=== PATIENT | male | born 1950 | race African-American/Black ===

== ENCOUNTER 2019-06-17 11:29 | Emergency (ER) | payer OTHER ==
--- OUTSIDE RECORDS SUMMARY | 2019-06-17 11:32 | XMS REPORT ---
:1950 Author Organization eClinicalWorks Care Team Providers Name Role Phone Jonas, Na Provider Role Unavailable Allergies No Known Allergies Problems Problem Type Condition Code Onset Dates Condition Status Problem Diabetes E11.9 Active Problem Hyperlipidemia E78.5 Active Problem Hypertension I10 Active Problem Low serum testosterone level in male R79.89 Active Problem High thyroid stimulating hormone R79.89 Active (TSH) level Problem Decreased libido R68.82 Active Problem Depression with anxiety F41.8 Active Problem Chronic back pain M54.9 Active Problem Hypothyroidism (acquired) E03.9 Active Problem Acquired hypothyroidism E03.9 Active Problem Metabolic syndrome X E88.81 Active Problem Decreased testosterone level E29.1 Active Problem Morbid obesity E66.01 Active Problem Controlled type 2 diabetes mellitus E11.9 Active without complication, without long-term current use of insulin Problem GERD (gastroesophageal reflux K21.9 Active disease) Problem Erectile dysfunction, unspecified N52.9 Active erectile dysfunction type Problem Coronary atherosclerosis of [place] 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
--- OUTSIDE RECORDS SUMMARY | 2019-06-17 11:32 | XMS REPORT ---
[...] erectile dysfunction type Problem Coronary atherosclerosis of [place] 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
--- OUTSIDE RECORDS SUMMARY | 2019-06-17 11:33 | XMS REPORT ---
[...] erectile dysfunction type Problem Coronary atherosclerosis of [place] 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
--- OUTSIDE RECORDS SUMMARY | 2019-06-17 11:33 | XMS REPORT ---
:1950 Author Organization eClinicalWorks Care Team Providers Name Role Phone Jonas, Tanya Provider Role Unavailable Allergies, Adverse Reactions, Alerts Substance Reaction Event Type N.K.D.A. Info Not Available Non Drug Allergy Problems Problem Type Condition Code Onset Dates Condition Status Assessment Hypertension I10 Active Problem GERD (gastroesophageal reflux K21.9 Active disease) Assessment Hyperlipidemia E78.5 Active Problem Coronary atherosclerosis of [place] I25.10 Active coronary artery Assessment Controlled type 2 diabetes mellitus E11.9 Active without complication, without long-term current use of insulin Problem Diabetes E11.9 Active Problem Hyperlipidemia E78.5 Active Problem Hypertension I10 Active Problem Low serum testosterone level in male R79.89 Active Problem High thyroid stimulating hormone R79.89 Active (TSH) level Assessment Low serum testosterone level in male R79.89 Active Assessment Erectile dysfunction, unspecified N52.9 Active erectile dysfunction type Problem Decreased libido R68.82 Active Assessment Decreased libido R68.82 Active Problem Depression with anxiety F41.8 Active Problem Chronic back pain M54.9 Active Problem Hypothyroidism (acquired) E03.9 Active Problem Acquired hypothyroidism E03.9 Active Problem Metabolic syndrome X E88.81 Active Assessment High thyroid stimulating hormone R79.89 Active (TSH) level Assessment Acquired hypothyroidism E03.9 Active Problem Decreased testosterone level E29.1 Active Problem Morbid obesity E66.01 Active Problem Controlled type 2 diabetes mellitus E11.9 Active without complication, without long-term current use of insulin Problem Erectile dysfunction, unspecified N52.9 Active erectile dysfunction type Medications Medication Code Code Instructions Start End Status Dosage System Date Date Toprol XL ND 83289887222 100 MG Orally Active 1 tablet Once a day Clonidine HCl ND 21113170194 0.1 MG Orally Active 1 tablet twice a day at bedtime Enalapril ND 12478023643 20 MG Orally Active 1 tablet Maleate Once a day Clonidine HCl ND 90539954380 0.2 MG Orally April 21, Active 1 tablet twice a day 2017 [place] [facility] 15454340085 5-325 MG Orally Active 1 tablet every 6 hrs as needed Lipitor [facility] 11038774144 40 MG Orally Active 1 tablet Once a day Metformin HCl [facility] 79900297522 500 orally Active 1 tabet twice a day Testosterone [facility] 80590739612 30 MG/ACT Jul 28, Active 1 pump to Transdermal 2017 each Once a day axilla skin in the morning Amlodipine [facility] 52233691523 10 MG Orally Active 1 tablet Besylate Once a day Levothyroxine [facility] 59203992208 137 MCG Orally Jul 28, Active 1 tablet Sodium Once a day 2017 on an empty stomach in the morning Xanax [facility] 82475556233 1 MG Orally Active 1 tablet once a day Levothyroxine [facility] 64946868270 125 MCG Orally Inactive 1 tablet Sodium Once a day on an empty stomach in the morning Results No Known Results Summary Purpose eClinicalWorks Submission
--- OUTSIDE RECORDS SUMMARY | 2019-06-17 11:33 | XMS REPORT ---
[...] erectile dysfunction type Problem Coronary atherosclerosis of [place] 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
--- OUTSIDE RECORDS SUMMARY | 2019-06-17 11:33 | XMS REPORT ---
[...] erectile dysfunction type Problem Coronary atherosclerosis of [place] 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
[2019-06-17] MEDS ORDERED: ONDANSETRON 4 MG (ODT) TAB ONE (12:00)
[2019-06-17] MEDS ORDERED: FENTANYL CITR 100 MCG/2 ML ONE (12:00)
[2019-06-17] MEDS ORDERED: LIDOCAINE 5% PATCH TD ONE (12:15)
[2019-06-17 12:31] LABS: Urine Blood TRACE (NEG); Urine Glucose NEGATIVE (NEG); Urine Protein NEGATIVE (NEG)
--- NOTE | 2019-06-17 13:03 | ER ---
Nurse's Notes [facility] Name: Gerardo Eason Age: 69 yrs Sex: Male : 1950 Arrival Date: 06/17/2019 Time: 11:30 Bed 18 Private MD: Diagnosis: Other chronic pain;Low back pain Presentation: 06/17 11:28 Presenting complaint: Patient states: Reports low back pain which is chronic, frequent aj urination, and accidentally swallowed small amount of rubbing alcohol 2 nights ago. Transition of care: patient was not received from another setting of care. Onset of symptoms was June 17, 2019. Risk Assessment: Do you want to hurt yourself or someone else? Patient reports no desire to harm self or others. Initial Sepsis Screen: Does the patient meet any 2 criteria? No. Patient's initial sepsis screen is negative. Does the patient have a suspected source of infection? No. Patient's initial sepsis screen is negative. Care prior to arrival: None. 11:28 Method Of Arrival: Ambulatory 11:28 Acuity: CHANDRIKA 3 aj Triage Assessment: 11:29 General: Appears in no apparent distress. comfortable, Behavior is calm, cooperative, aj appropriate for age. Pain: Complains of pain in low back area. Neuro: Level of Consciousness is awake, alert, obeys commands, Oriented to person, place, time, situation, Appropriate for age. Respiratory: Airway is patent Respiratory effort is even, unlabored, Respiratory pattern is regular, symmetrical. GI: Abdomen is non-distended, obese. Derm: Skin is intact, is healthy with good turgor, Skin is pink, warm \T\ dry. normal. Historical: - Allergies: 11:29 No Known Allergies; aj - PMHx: 11:30 Chronic pain; aj - Immunization history:: Adult Immunizations up to date. - Social history:: Smoking status: Patient/guardian denies using tobacco. - Ebola Screening: : Patient negative for fever greater than or equal to 101.5 degrees Fahrenheit, and additional compatible Ebola Virus Disease symptoms Patient denies exposure to infectious person Patient denies travel to an Ebola-affected area in the 21 days before illness onset No symptoms or risks identified at this time. Screenin:40 Abuse screen: Denies threats or abuse. Denies injuries from another. Nutritional hb screening: No deficits noted. Tuberculosis screening: No symptoms or risk factors identified. Fall Risk None identified. Assessment: 11:45 General: Appears in no apparent distress. Behavior is calm, cooperative. Pain: Pain hb currently is 8 out of 10 on a pain scale. Neuro: Level of Consciousness is awake, alert, obeys commands, Oriented to person, place, time, situation. Cardiovascular: Capillary refill < 3 seconds Patient's skin is warm and dry. Respiratory: Airway is patent Respiratory effort is even, unlabored, Respiratory pattern is regular, symmetrical. GI: No signs and/or symptoms were reported involving the gastrointestinal system. : No signs and/or symptoms were reported regarding the genitourinary system. EENT: No signs and/or symptoms were reported regarding the EENT system. Derm: Skin is intact, is healthy with good turgor. Musculoskeletal: Reports low back pain. 12:45 Reassessment: Patient appears in no apparent distress at this time. Patient and/or hb family updated on plan of care and expected duration. Pain level reassessed. Patient is alert, oriented x 3, equal unlabored respirations, skin warm/dry/pink. Vital Signs: 11:30 BP 157 / 67; Pulse 87; Resp 19; Temp 97.9; Pulse Ox 99% on R/A; Weight 121.56 kg; aj Height 5 ft. 8 in. (172.72 cm); 13:00 BP 146 / 66; Pulse 82; Resp 16; Pulse Ox 100% on R/A; hb 11:30 Body Mass Index 40.75 (121.56 kg, 172.72 cm) aj ED Course: 11:29 Triage completed. aj 11:30 Patient arrived in ED. as 11:30 Arm band placed on left wrist. Patient placed in an exam room. aj 11:39 Jorge Desir NP is PHCP. pm1 11:39 Nate Murillo MD is Attending Physician. pm1 11:40 Patient has correct armband on for positive identification. Call light in reach. hb 11:52 Olinda Garrido, LILLY is Primary Nurse. hb 13:03 Mehran Best DO is Referral Physician. pm1 13:21 No provider procedures requiring assistance completed. Patient did not have IV access hb during this emergency room visit. Administered Medications: 12:04 Drug: fentaNYL (PF) 50 mcg Route: IM; Site: left deltoid; hb 12:40 Follow up: Response: No adverse reaction; Pain is unchanged, physician notified; RASS: hb Alert and Calm (0) 12:04 Drug: Zofran 4 mg Route: PO; hb 12:40 Follow up: Response: No adverse reaction hb 12:14 Drug: lidocaine 5% patch 1 patches Route: Topical; Site: affected area; hb 12:45 Follow up: Response: No adverse reaction hb 13:10 Drug: HYDROcodone-acetaminophen 10 mg-325 mg 1 tabs Route: PO; hb 13:14 Follow up: Response: Medication administered at discharge. hb Outcome: 13:01 Discharge ordered by MD. pm1 13:21 Discharged to home ambulatory. hb 13:21 Condition: stable 13:21 Discharge instructions given to patient, Instructed on discharge instructions, follow up and referral plans. medication usage, Demonstrated understanding of instructions, follow-up care, medications. 13:21 Patient left the ED. hb Signatures: Gill Oglesby RN RN aj Martinez, Amelia as Marinas, Patrick, NP PHOTOGRAPH FINISHER pm1 Olinda Garrido RN RN hb
--- NOTE | 2019-06-17 13:04 | EDPHYS ---
Physician Documentation [facility] Name: Gerardo Eason Age: 69 yrs Sex: Male : 1950 Arrival Date: 06/17/2019 Time: 11:30 Bed 18 Private MD: ED Physician Nate Murillo HPI: 06/17 11:55 This 69 yrs old Black Male presents to ER via Ambulatory with complaints of Low Back pm1 Pain. 11:55 The patient presents with pain that is chronic, with no known mechanism of injury. The pm1 symptoms are located in the low back. The pain does not radiate. The problem was sustained when his [place] 10 mg was reduced to 7.5 mg and patient has run out of [place] for the past 2 days because he has been taking 1.5 pills of his 7.5 mg. Patient was denied a refill of his [place] by Dr. Melendez for running out early and was told that he will not get a refill of his pain medication until it is time for it and it will not be increased to 10 mg. Patient does not understand why the medication dosage was reduced when the 10 mg dosage was working fine for his pain management. 11:55 Patient drank a sip of rubbing alcohol two days ago. No nausea or vomiting. No pm1 abdominal pain. Historical: - Allergies: 11:29 No Known Allergies; aj - PMHx: 11:30 Chronic pain; aj - Immunization history:: Adult Immunizations up to date. - Social history:: Smoking status: Patient/guardian denies using tobacco. - Ebola Screening: : Patient negative for fever greater than or equal to 101.5 degrees Fahrenheit, and additional compatible Ebola Virus Disease symptoms Patient denies exposure to infectious person Patient denies travel to an Ebola-affected area in the 21 days before illness onset No symptoms or risks identified at this time. ROS: 11:55 Constitutional: Negative for fever, chills, and weight loss, Neck: Negative for injury, pm1 pain, and swelling, Cardiovascular: Negative for chest pain, palpitations, and edema, Respiratory: Negative for shortness of breath, cough, wheezing, and pleuritic chest pain, Abdomen/GI: Negative for abdominal pain, nausea, vomiting, diarrhea, and constipation. 11:55 MS/Extremity: Negative for injury and deformity, Skin: Negative for injury, rash, and discoloration, Neuro: Negative for headache, weakness, numbness, tingling, and seizure. 11:55 Back: Positive for pain with movement, of the right low back. 11:55 : Positive for urinary frequency, Negative for burning with urination, difficulty urinating. Exam: 11:55 Constitutional: This is a well developed, well nourished patient who is awake, alert, pm1 and in no acute distress. Head/Face: Normocephalic, atraumatic. Eyes: Pupils equal round and reactive to light, extra-ocular motions intact. Lids and lashes normal. Conjunctiva and sclera are non-icteric and not injected. Cornea within normal limits. Periorbital areas with no swelling, redness, or edema. ENT: Nares patent. No nasal discharge, no septal abnormalities noted. Tympanic membranes are normal and external auditory canals are clear. Oropharynx with no redness, swelling, or masses, exudates, or evidence of obstruction, uvula midline. Mucous membranes moist. Neck: Trachea midline, no thyromegaly or masses palpated, and no cervical lymphadenopathy. Supple, full range of motion without nuchal rigidity, or vertebral point tenderness. No Meningismus. Chest/axilla: Normal chest wall appearance and motion. Nontender with no deformity. No lesions are appreciated. Cardiovascular: Regular rate and rhythm with a normal S1 and S2. No gallops, murmurs, or rubs. Normal PMI, no JVD. No pulse deficits. Respiratory: Lungs have equal breath sounds bilaterally, clear to auscultation and percussion. No rales, rhonchi or wheezes noted. No increased work of breathing, no retractions or nasal flaring. Abdomen/GI: Soft, non-tender, with normal bowel sounds. No distension or tympany. No guarding or rebound. No evidence of tenderness throughout. 11:55 Skin: Warm, dry with normal turgor. Normal color with no rashes, no lesions, and no evidence of cellulitis. MS/ Extremity: Pulses equal, no cyanosis. Neurovascular intact. Full, normal range of motion. 11:55 Back: normal spinal alignment noted, vertebral tenderness, is not appreciated, muscle spasm, is appreciated in the right low back. 11:55 Neuro: Orientation: is normal, Motor: is normal, moves all fours, strength is normal, strength is 5/5 in all extremities, Sensation: is normal, no obvious gross deficits, Gait: is steady, slow gait with cane, Patient able to dorsiflex and plantar flex bilateral great toes 5/5 strength. Vital Signs: 11:30 BP 157 / 67; Pulse 87; Resp 19; Temp 97.9; Pulse Ox 99% on R/A; Weight 121.56 kg; aj Height 5 ft. 8 in. (172.72 cm); 13:00 BP 146 / 66; Pulse 82; Resp 16; Pulse Ox 100% on R/A; hb 11:30 Body Mass Index 40.75 (121.56 kg, 172.72 cm) aj MDM: 11:40 Patient medically screened. pm1 12:34 Data reviewed: vital signs. Data interpreted: Pulse oximetry: on room air is 99 %. pm1 Interpretation: normal. 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 06/17 12:11 Order name: Urine Dipstick--Ancillary (enter results); Complete Time: 12:34 bd 06/17 11:55 Order name: Urine Dipstick-Ancillary (obtain specimen); Complete Time: 12:11 pm1 Administered Medications: 12:04 Drug: fentaNYL (PF) 50 mcg Route: IM; Site: left deltoid; hb 12:40 Follow up: Response: No adverse reaction; Pain is unchanged, physician notified; RASS: hb Alert and Calm (0) 12:04 Drug: Zofran 4 mg Route: PO; hb 12:40 Follow up: Response: No adverse reaction hb 12:14 Drug: lidocaine 5% patch 1 patches Route: Topical; Site: affected area; hb 12:45 Follow up: Response: No adverse reaction hb 13:10 Drug: HYDROcodone-acetaminophen 10 mg-325 mg 1 tabs Route: PO; hb 13:14 Follow up: Response: Medication administered at discharge. hb Disposition: 06/18 09:15 Co-signature as Attending Physician, Nate Murillo MD I agree with the assessment and fay plan of care. Disposition: 06/17/19 13:01 Discharged to Home. Impression: Low back pain, Other chronic pain. - Condition is Stable. - Discharge Instructions: Back Pain, Adult, Chronic Pain. - Medication Reconciliation Form, Thank You Letter, Antibiotic Education, Prescription Opioid Use form. - Follow up: Emergency Department; When: As needed; Reason: Worsening of condition. Follow up: Private Physician; When: 2 - 3 days; Reason: Recheck today's complaints, Continuance of care, Re-evaluation by your physician. Follow up: Mehran Best DO; When: 2 - 3 days; Reason: Recheck today's complaints, Continuance of care, Re-evaluation by your physician. - Problem is new. - Symptoms have improved. Signatures: Dispatcher [employer] EDGill Brown, RN Nate John MD MD cha Marinas, Patrick, MAITRE D' MAITRE D' pm1 Olinda Garrido RN RN hb Corrections: (The following items were deleted from the chart) 06/17 13:03 13:01 06/17/2019 13:01 Discharged to Home. Impression: Low back painOther chronic pain. pm1 Condition is Stable. Forms are Medication Reconciliation Form, Thank You Letter, Antibiotic Education, Prescription Opioid Use. Follow up: Emergency Department; When: As needed; Reason: Worsening of condition. Follow up: Private Physician; When: 2 - 3 days; Reason: Recheck today's complaints, Continuance of care, Re-evaluation by your physician. Problem is new. Symptoms have improved. pm1 13:21 13:03 06/17/2019 13:01 Discharged to Home. Impression: Low back painOther chronic pain. hb Condition is Stable. Discharge Instructions: Back Pain, Adult, Chronic Pain. Forms are Medication Reconciliation Form, Thank You Letter, Antibiotic Education, Prescription Opioid Use. Follow up: Emergency Department; When: As needed; Reason: Worsening of condition. Follow up: Private Physician; When: 2 - 3 days; Reason: Recheck today's complaints, Continuance of care, Re-evaluation by your physician. Follow up: Mehran Best; When: 2 - 3 days; Reason: Recheck today's complaints, Continuance of care, Re-evaluation by your physician. Problem is new. Symptoms have improved. pm1
[2019-06-17] MEDS ORDERED: HYDROCODONE/APAP 10/325 TAB ONE (13:05)
[2019-06-18] MEDS ORDERED: PHENAZOPYRIDINE 100MG TAB PO ONE (15:37)
[2019-06-18] MEDS ORDERED: CEFTRIAXONE 1000 MG/VIAL ONE (15:38)
[2019-06-18] MEDS ORDERED: LIDOCAINE 1% MPF 2 ML AMPULE ONE (15:38)
== END 2019-06-17 13:21 | disposition home or self-care (01) ==
LOC: ER 11:29
DX: M54.5 Low back pain (principal); G89.29 Other chronic pain
CPT/HCPCS: 81003; 96372; 99283; J3010

== ENCOUNTER 2019-06-21 12:38 | Emergency (ER) | payer OTHER ==
--- OUTSIDE RECORDS SUMMARY | 2019-06-21 12:40 | XMS REPORT ---
[...] type Problem Coronary atherosclerosis of [place] 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
--- OUTSIDE RECORDS SUMMARY | 2019-06-21 12:40 | XMS REPORT ---
[...] erectile dysfunction type Problem Coronary atherosclerosis of [place] 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
--- OUTSIDE RECORDS SUMMARY | 2019-06-21 12:41 | XMS REPORT ---
[...] erectile dysfunction type Problem Coronary atherosclerosis of [place] 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
--- OUTSIDE RECORDS SUMMARY | 2019-06-21 12:41 | XMS REPORT ---
[...] Hyperlipidemia E78.5 Active Problem Coronary atherosclerosis of [place] I25.10 Active coronary artery Assessment Controlled type [...] Dosage System Date Date Toprol XL ND 43460844484 100 MG Orally Active 1 tablet Once a day Clonidine HCl ND 10676280796 0.1 MG Orally Active 1 tablet twice a day at bedtime Enalapril ND 41384753555 20 MG Orally Active 1 tablet Maleate Once a day Clonidine HCl ND 34281665822 0.2 MG Orally April 21, Active 1 tablet twice a day 2017 [place] [facility] 77769361755 5-325 MG Orally Active 1 tablet every 6 hrs as needed Lipitor [facility] 94879294799 40 MG Orally Active 1 tablet Once a day Metformin HCl [facility] 46080041724 500 orally Active 1 tabet twice a day Testosterone [facility] 53938181140 30 MG/ACT Jul 28, Active 1 pump to Transdermal 2017 each Once a day axilla skin in the morning Amlodipine [facility] 54925251868 10 MG Orally Active 1 tablet Besylate Once a day Levothyroxine [facility] 17445768226 137 MCG Orally Jul 28, Active 1 tablet Sodium Once a day 2017 on an empty stomach in the morning Xanax [facility] 68021317847 1 MG Orally Active 1 tablet once a day Levothyroxine [facility] 08614877093 125 MCG Orally Inactive 1 tablet Sodium Once a day on an empty stomach in the morning Results No Known Results Summary Purpose eClinicalWorks Submission
--- OUTSIDE RECORDS SUMMARY | 2019-06-21 12:41 | XMS REPORT ---
[...] erectile dysfunction type Problem Coronary atherosclerosis of [place] 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
--- OUTSIDE RECORDS SUMMARY | 2019-06-21 12:41 | XMS REPORT ---
[...] type Problem Coronary atherosclerosis of [place] 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
--- NOTE | 2019-06-21 13:50 | ER ---
Nurse's Notes [facility] Name: Gerardo Eason Age: 69 yrs Sex: Male : 1950 Arrival Date: 06/21/2019 Time: 12:39 Bed 18 Private MD: Diagnosis: Dental caries;Dental caries, unspecified Presentation: 06/21 13:10 Presenting complaint: Patient states: front tooth pain, needs antibiotics. Transition iw of care: patient was not received from another setting of care. Onset of symptoms was May 2019. Risk Assessment: Do you want to hurt yourself or someone else? Patient reports no desire to harm self or others. Initial Sepsis Screen: Does the patient meet any 2 criteria? No. Patient's initial sepsis screen is negative. Does the patient have a suspected source of infection? No. Patient's initial sepsis screen is negative. Care prior to arrival: None. 13:10 Method Of Arrival: Ambulatory iw 13:10 Acuity: CHANDRIKA 5 iw Historical: - Allergies: 13:59 No Known Allergies; iw - PMHx: 13:59 Chronic pain; iw - Family history:: not pertinent. - Ebola Screening: : Patient negative for fever greater than or equal to 101.5 degrees Fahrenheit, and additional compatible Ebola Virus Disease symptoms Patient denies exposure to infectious person Patient denies travel to an Ebola-affected area in the 21 days before illness onset No symptoms or risks identified at this time. Screenin:30 Abuse screen: Denies threats or abuse. Nutritional screening: No deficits noted. em Tuberculosis screening: No symptoms or risk factors identified. Fall Risk None identified. Assessment: 13:30 General: Appears in no apparent distress. comfortable, Behavior is calm, cooperative, em Denies. Pain: Complains of pain in upper left lateral incisor (#10) and upper right cuspid (#6). Neuro: Level of Consciousness is awake, alert, obeys commands, Oriented to person, place, time, situation. Cardiovascular: Capillary refill < 3 seconds Patient's skin is warm and dry. Respiratory: Airway is patent Respiratory effort is even, unlabored, Respiratory pattern is regular, symmetrical. EENT: Nares are clear Oral mucosa is moist. Throat is clear is pink. Derm: Skin is intact, is healthy with good turgor, Skin is pink, warm \T\ dry. Musculoskeletal: Capillary refill < 3 seconds, Range of motion: intact in all extremities. Vital Signs: 14:05 BP 131 / 66; Pulse 60; Resp 18; Pulse Ox 100% on R/A; Pain 8/10; em ED Course: 12:39 Patient arrived in ED. as 12:59 Nate Murillo MD is Attending Physician. fay 13:06 Liang Melara LVN is Primary Nurse. em 13:12 Triage completed. iw 13:50 Patient has correct armband on for positive identification. Bed in low position. Call em light in reach. 13:59 Arm band placed on. iw 14:07 No provider procedures requiring assistance completed. Patient did not have IV access em during this emergency room visit. Administered Medications: 14:04 Drug: Augmentin 875 mg Route: PO; em 14:07 Follow up: Response: Medication administered at discharge. em 14:04 Drug: Motrin 400 mg Route: PO; em 14:07 Follow up: Response: Medication administered at discharge. em Outcome: 13:49 Discharge ordered by . [facility] 14:07 Discharged to home ambulatory. em 14:07 Condition: good 14:07 Discharge instructions given to patient, Instructed on discharge instructions, follow up and referral plans. medication usage, Demonstrated understanding of instructions, follow-up care, medications, Prescriptions given X 2. 14:08 Patient left the ED. em Signatures: Nate Murillo MD MD cha Munoz, Edgar, MJ BARKER em Naa Painter Irene, RN RN iw
--- NOTE | 2019-06-21 13:50 | EDPHYS ---
Physician Documentation [facility] Name: Gerardo Eason Age: 69 yrs Sex: Male : 1950 Arrival Date: 06/21/2019 Time: 12:39 Bed 18 Private MD: ED Physician Nate Murillo HPI: 06/21 13:41 This 69 yrs old Black Male presents to ER via Ambulatory with complaints of Toothache. fay 13:41 The patient presents with broken tooth/teeth, lost tooth/teeth, pain, swelling. The fay problem is located in the frenulum. Onset: The symptoms/episode began/occurred 2 day(s) ago. Duration: The symptoms are continuous, and are steadily getting worse. Modifying factors: The symptoms are alleviated by nothing, the symptoms are aggravated by nothing. Associated signs and symptoms: The patient has no apparent associated signs or symptoms. Severity of symptoms: At their worst the symptoms were mild, moderate, in the emergency department the symptoms are unchanged. The patient has not experienced similar symptoms in the past. Historical: - Allergies: 13:59 No Known Allergies; iw - PMHx: 13:59 Chronic pain; iw - Family history:: not pertinent. - Ebola Screening: : Patient negative for fever greater than or equal to 101.5 degrees Fahrenheit, and additional compatible Ebola Virus Disease symptoms Patient denies exposure to infectious person Patient denies travel to an Ebola-affected area in the 21 days before illness onset No symptoms or risks identified at this time. ROS: 13:41 Constitutional: Negative for fever, chills, and weight loss, Eyes: Negative for injury, fay pain, redness, and discharge, Neck: Negative for injury, pain, and swelling, Cardiovascular: Negative for chest pain, palpitations, and edema, Respiratory: Negative for shortness of breath, cough, wheezing, and pleuritic chest pain, Abdomen/GI: Negative for abdominal pain, nausea, vomiting, diarrhea, and constipation, Back: Negative for injury and pain, : Negative for injury, bleeding, discharge, and swelling, MS/Extremity: Negative for injury and deformity, Skin: Negative for injury, rash, and discoloration, Neuro: Negative for headache, weakness, numbness, tingling, and seizure, Psych: Negative for depression, anxiety, suicide ideation, homicidal ideation, and hallucinations, Allergy/Immunology: Negative for hives, rash, and allergies, Endocrine: Negative for neck swelling, polydipsia, polyuria, polyphagia, and marked weight changes, Hematologic/Lymphatic: Negative for swollen nodes, abnormal bleeding, and unusual bruising. 13:41 ENT: Positive for Gum pain Teeth pain Exam: 13:41 Constitutional: This is a well developed, well nourished patient who is awake, alert, fay and in no acute distress. Head/Face: Normocephalic, atraumatic. Eyes: Pupils equal round and reactive to light, extra-ocular motions intact. Lids and lashes normal. Conjunctiva and sclera are non-icteric and not injected. Cornea within normal limits. Periorbital areas with no swelling, redness, or edema. Neck: Trachea midline, no thyromegaly or masses palpated, and no cervical lymphadenopathy. Supple, full range of motion without nuchal rigidity, or vertebral point tenderness. No Meningismus. Chest/axilla: Normal chest wall appearance and motion. Nontender with no deformity. No lesions are appreciated. Cardiovascular: Regular rate and rhythm with a normal S1 and S2. No gallops, murmurs, or rubs. Normal PMI, no JVD. No pulse deficits. Respiratory: Lungs have equal breath sounds bilaterally, clear to auscultation and percussion. No rales, rhonchi or wheezes noted. No increased work of breathing, no retractions or nasal flaring. Abdomen/GI: Soft, non-tender, with normal bowel sounds. No distension or tympany. No guarding or rebound. No evidence of tenderness throughout. Back: No spinal tenderness. No costovertebral tenderness. Full range of motion. Male : Normal genitalia with no discharge or lesions. Skin: Warm, dry with normal turgor. Normal color with no rashes, no lesions, and no evidence of cellulitis. MS/ Extremity: Pulses equal, no cyanosis. Neurovascular intact. Full, normal range of motion. Neuro: Awake and alert, GCS 15, oriented to person, place, time, and situation. Cranial nerves II-XII grossly intact. Motor strength 5/5 in all extremities. Sensory grossly intact. Cerebellar exam normal. Normal gait. Psych: Awake, alert, with orientation to person, place and time. Behavior, mood, and affect are within normal limits. 13:41 ENT: Mouth: Lips: normal, moist, Oral mucosa: normal, Gums: noted to have cellulitis, Tongue: is normal, abscess, is not appreciated, drooling, is not appreciated, Dental exam: dental caries, that is mild, that is moderate, diffusely, gum swelling, that is mild, malocclusion, is not appreciated, missing teeth, specifically the upper right cuspid (#6) and upper left lateral incisor (#10). Vital Signs: 14:05 BP 131 / 66; Pulse 60; Resp 18; Pulse Ox 100% on R/A; Pain 8/10; em MDM: 12:59 Patient medically screened. [facility] 13:48 Data reviewed: vital signs, nurses notes. [facility] Administered Medications: 14:04 Drug: Augmentin 875 mg Route: PO; em 14:07 Follow up: Response: Medication administered at discharge. em 14:04 Drug: Motrin 400 mg Route: PO; em 14:07 Follow up: Response: Medication administered at discharge. em Disposition: 06/21/19 13:49 Discharged to Home. Impression: Dental caries, Dental caries, unspecified. - Condition is Stable. - Discharge Instructions: Dental Caries, Adult, Dental Pain, Dental Pain, [id number], Diet and Dental Disease, Dental Caries, [id number]. - Prescriptions for Augmentin 875- 125 mg Oral Tablet - take 1 tablet by ORAL route every 12 hours for 10 days; 20 tablet. Tylenol- Codeine #3 300-30 mg Oral Tablet - take 2 tablet by ORAL route every 6 hours As needed; 30 tablet. - Medication Reconciliation Form, Thank You Letter, Antibiotic Education, Prescription Opioid Use form. - Follow up: Private Physician; When: 2 - 3 days; Reason: Recheck today's complaints, Continuance of care, Re-evaluation by your physician. - Problem is new. - Symptoms have improved. Signatures: Nate Murillo MD MD cha Munoz, Edgar, TREE TRIMMER HELPER TREE TRIMMER HELPER em Thania Real RN RN iw Corrections: (The following items were deleted from the chart) 14:08 13:49 06/21/2019 13:49 Discharged to Home. Impression: Dental caries; Dental caries, em unspecified. Condition is Stable. Forms are Medication Reconciliation Form, Thank You Letter, Antibiotic Education, Prescription Opioid Use. Follow up: Private Physician; When: 2 - 3 days; Reason: Recheck today's complaints, Continuance of care, Re-evaluation by your physician. Problem is new. Symptoms have improved. fay
[2019-06-21] MEDS ORDERED: IBUPROFEN 400 MG TAB ONE (14:04)
[2019-06-21] MEDS ORDERED: AMOX/K CLAV 875 MG TAB ONE (14:05)
== END 2019-06-21 14:08 | disposition home or self-care (01) ==
LOC: ER 12:38
DX: K02.9 Dental caries, unspecified (principal)
CPT/HCPCS: 99283

== ENCOUNTER 2024-10-31 13:51 | Emergency (ER) | payer OTHER ==
--- OUTSIDE RECORDS SUMMARY | 2024-10-31 13:54 | XMS REPORT | Continuity of Care Document ---
Author Name Unknown Address [address] [facility] [place] [id number] [facility] Address [address] [facility] [place] [address] Care Team Providers Care Tripoler Name Role Phone SYSTEM, PCP NOT IN Primary Care Physician Douglas Desai Attending Clinician Unavailable Hugo Espinoza Attending Clinician Unavailable Tanya ABDI Attending Clinician Unavailable Wagner Honeycutt Attending Clinician Unknown, Attending Attending Clinician Unavailab AWGNER Davila Attending Clinician Unavailable [email or web address] Attending Clinician Unavailable [email or web address] Admitting Clinician Unavailable Payers Payer Name Policy Type Policy Number Effective Date Expirati on Date Source [employer] MEDICARE C1 [id number] 2019 00:00:00 [facility] HU[employer]NA MEDICARE C1 [id number] 2019 00:00:00 [facility] [employer]NA (MEDICARE REPLACEMENT/ADVA NTAGE - PPO) [id number] MEDICARE [place]: TORIE CALLAHAN [facility] [id number] 2004 00:00:00 Problems Condition Name Condition Details Condition Category Status Onset Date Resolution Date Last Treatment Date Treating Clinician Comments Source [id number] Allergic rhinitis, unspecifie d seasonalit y, unspecifie d trigger Problem [facility] [id number] Tremor, essential Problem [facility] [id number] Erectile dysfunctio n, unspecifie d erectile dysfunctio n type Problem [facility] [id number] Controlled type 2 diabetes mellitus without complicati on, without long-term current use of insulin Problem [facility] Atheroscle rosis of coronary artery Coronary atheroscle rosis of [place] coronary artery Problem [facility] Decreased testostero ne level Low serum testostero ne level in male Problem [facility] [id number] Body mass index [BMI] 40.0-44.9, adult Problem [facility] [id number] Morbid (severe) obesity due to excess calories Problem [facility] Hypertensi on Hypertensi on Problem [facility] Diabetes mellitus without complicati on Diabetes DMII without complicati ons Problem [facility] Morbid obesity Morbid obesity Problem [facility] Hyperlipid emia Hyperlipid emia Problem [facility] [id number] Acquired hypothyroi dism Problem [facility] [id number] Decreased libido Problem [facility] [id number] High thyroid stimulatin g hormone (TSH) level Problem [facility] [id number] Panic attack Problem [facility] Mixed anxiety and depressive disorder Depression with anxiety Problem [facility] [id number] Vitamin D deficiency Problem [facility] Gastroesop hageal reflux disease GERD (gastroeso phageal reflux disease) Problem [facility] Chronic back pain Chronic back pain Problem [facility] Metabolic syndrome X Metabolic syndrome X Problem [facility] [id number] Asymptomat ic hypertensi ve urgency Problem [facility] [id number] Other chronic pain Problem [facility] [id number] Type 2 diabetes mellitus with diabetic chronic kidney disease Problem [facility] Anemia Anemia, unspecifie d type Problem [facility] Allergies, Adverse Reactions, Alerts Allergy Name Allergy Type Status Severity Reaction(s) Onset Date Inactive Date Treating Clinician Comments Source NO KNOWN ALLERGIE S Drug Class Active [facility] Social History Social Habit Start Date Stop Date Quantity Comments Source History of Tobacco Use [facility] Gender identity [facility] Sexual orientation [facility] Sex Assigned At 1950 00:00:00 1950 00:00:00 [facility] Smoking Status Start Date Stop Date Source Tobacco smoking consumption unknown [facility] Never Smoker [facility] Medications Ordered Medication Name Filled Medication Name Start Date Stop Date Current Medication? Ordering Clinician Indication Dosage Frequency Signature (SIG) Comments Components Source busPIRone HCl 5 MG busPIRone HCl 5 MG 1-08 00:00: 00 No 1{table t} TID busPIRone HCl 5 MG molnupiravi r 200 mg capsule 9-03 00:00: 00 Yes [id number] 800mg Take 4 capsules by mouth every 12 (twelve) hours. [facility] citalopram 20 mg tablet 9- 00:00: 00 Yes [facility] atorvastati n 40 mg tablet 8-23 00:00: 00 Yes [facility] HYDROcodone -acetaminop hen 7.5-325 mg per tablet 8-16 00:00: 00 Yes TAKE 1 TABLET BY MOUTH 3 TO 4 TIMES DAILY NEEDED FOR PAIN [facility] enalapril 20 mg tablet 8-03 00:00: 00 Yes 20mg Take 1 tablet by mouth in the morning. [facility] enalapriL-h ydrochlorot hiazide 10-25 mg per tablet -03 00:00: 00 Yes 1{tbl} Take 1 tablet by mouth in the morning. [facility] cloNIDine 0.2 mg tablet 7-15 00:00: 00 Yes .2mg Take 1 tablet by mouth in the morning and 1 tablet in the evening. [facility] metoprolol succinate XL 100 mg 24 hr tablet 05-16 00:00: 00 Yes [facility] levothyroxi ne 175 mcg tablet 05-02 00:00: 00 Yes TAKE 1 TABLET BY MOUTH ONCE DAILY ON AN EMPTY STOMACH IN THE MORNING [facility] Cetirizine HCl 10 MG Cetirizine HCl 10 MG 05-23 00:00: 00 No 1{table t} Cetirizine HCl 10 MG Toprol XL 100 MG Toprol XL 100 MG No 1{table t} QD Toprol XL 100 MG Enalapril Maleate 20 MG Enalapril Maleate 20 MG No 1{table t} QD Enalapril Maleate 20 MG cloNIDine HCl 0.2 MG cloNIDine HCl 0.2 MG No 1{table t} BID cloNIDine HCl 0.2 MG Ferrous Sulfate 325 (65 Fe) MG Ferrous Sulfate 325 (65 Fe) MG No 1{table t} TID Ferrous Sulfate 325 (65 Fe) MG Primidone 50 MG Primidone 50 MG No QD Primidone 50 MG Levothyroxi ne Sodium 200 MCG Levothyroxi ne Sodium 200 MCG No QD Levothyrox ine Sodium 200 MCG metFORMIN HCl 1000 MG metFORMIN HCl 1000 MG No BID metFORMIN HCl 1000 MG ALPRAZolam 2 MG ALPRAZolam 2 MG No 1{table t} BID ALPRAZolam 2 MG Lipitor 40 MG Lipitor 40 MG No 1{table t} QD Lipitor 40 MG Levothyroxi ne Sodium 175 MCG Levothyroxi ne Sodium 175 MCG No QD Levothyrox ine Sodium 175 MCG Furosemide 40 MG Furosemide 40 MG No Furosemide 40 MG Fluticasone Propionate 50 MCG/ACT Fluticasone Propionate 50 MCG/ACT No Fluticason e Propionate 50 MCG/ACT ARIPiprazol e 5 MG ARIPiprazol e 5 MG No ARIPiprazo le 5 MG Vital Signs Vital Name Observation Time Observation Value Comments S robertogeovanna height 2024-10-01 09:45:00 69.00 [in_i] Com mon [facility] weight 2024-10-01 09:45:00 283.6 [lb_av] Co mmon [facility] temperature 2024-10-01 09:45:00 98.6 [degF] Com [facility] bmi 2024-10-01 09:45:00 41.88 kg/m2 Comm on [facility] oximetry 2024-10-01 09:45:00 98 % Commo n [facility] blood pressure systolic 2024-10-01 09:45:00 132 mm[Hg] [facility] blood pressure diastolic 2024-10-01 09:45:00 78 mm[Hg] [facility] height 2024-10-01 10:20:00 69.00 [in_i] Com [facility] weight 2024-10-01 10:20:00 283.6 [lb_av] Co [facility] temperature 2024-10-01 10:20:00 98.6 [degF] Com [facility] bmi 2024-10-01 10:20:00 41.88 kg/m2 Comm on [facility] oximetry 2024-10-01 10:20:00 98 % Commo n [facility] blood pressure systolic 2024-10-01 10:20:00 132 mm[Hg] [facility] blood pressure diastolic 2024-10-01 10:20:00 78 mm[Hg] Common [facility] height 2024-05-27 10:20:00 69.00 [in_i] Com [facility] weight 2024-05-27 10:20:00 285.0 [lb_av] [facility] 2024-05-27 10:20:00 97.5 [degF] Com [facility] bmi 2024-05-27 10:20:00 42.08 kg/m2 Comm on [facility] oximetry 2024-05-27 10:20:00 98 % Commo n [facility] respiratory rate 2024-05-27 10:20:00 18 /min [facility] blood pressure systolic 2024-05-27 10:20:00 127 mm[Hg] [facility] blood pressure diastolic 2024-05-27 10:20:00 73 mm[Hg] [facility] height 2024-05-27 10:20:00 69.00 [in_i] Com [facility] weight 2024-05-27 10:20:00 285.0 [lb_av] Co mmon [facility] temperature 2024-05-27 10:20:00 97.5 [degF] Com [facility] bmi 2024-05-27 10:20:00 42.08 kg/m2 Comm on [facility] oximetry 2024-05-27 10:20:00 98 % Commo n [facility] respiratory rate 2024-05-27 10:20:00 18 /min [facility] blood pressure systolic 2024-05-27 10:20:00 127 mm[Hg] [facility] blood pressure diastolic 2024-05-27 10:20:00 73 mm[Hg] Common [facility] height 2023-12-24 15:30:00 69.00 [in_i] Com [facility] weight 2023-12-24 15:30:00 281.2 [lb_av] Co mmon [facility] temperature 2023-12-24 15:30:00 97.8 [degF] Com [facility] bmi 2023-12-24 15:30:00 41.52 kg/m2 Comm on [facility] oximetry 2023-12-24 15:30:00 95 % Commo n [facility] respiratory rate 2023-12-24 15:30:00 16 /min [facility] blood pressure systolic 2023-12-24 15:30:00 144 mm[Hg] [facility] blood pressure diastolic 2023-12-24 15:30:00 62 mm[Hg] [facility] height 2023-11-18 14:20:00 69.00 [in_i] Com [facility] weight 2023-11-18 14:20:00 274.0 [lb_av] Co mmon [facility] temperature 2023-11-18 14:20:00 97.2 [degF] Com [facility] bmi 2023-11-18 14:20:00 40.46 kg/m2 Comm on [facility] oximetry 2023-11-18 14:20:00 99 % Commo n [facility] respiratory rate 2023-11-18 14:20:00 18 /min [facility] blood pressure systolic 2023-11-18 14:20:00 138 mm[Hg] [facility] blood pressure diastolic 2023-11-18 14:20:00 80 mm[Hg] [facility] height 2023-08-22 11:00:00 69.00 [in_i] Com [facility] weight 2023-08-22 11:00:00 279.0 [lb_av] Co mmon [facility] temperature 2023-08-22 11:00:00 96.1 [degF] Com [facility] bmi 2023-08-22 11:00:00 41.2 kg/m2 Commo n [facility] oximetry 2023-08-22 11:00:00 98 % Commo n [facility] respiratory rate 2023-08-22 11:00:00 16 /min [facility] blood pressure systolic 2023-08-22 11:00:00 140 mm[Hg] [facility] blood pressure diastolic 2023-08-22 11:00:00 69 mm[Hg] [facility] height 2023-08-22 11:00:00 69.00 [in_i] Com [facility] weight 2023-08-22 11:00:00 288.0 [lb_av] Co [facility] temperature 2023-08-22 11:00:00 97.9 [degF] Com [facility] bmi 2023-08-22 11:00:00 42.53 kg/m2 Comm on [facility] oximetry 2023-08-22 11:00:00 96 % Commo n [facility] respiratory rate 2023-08-22 11:00:00 17 /min [facility] blood pressure systolic 2023-08-22 11:00:00 140 mm[Hg] [facility] blood pressure diastolic 2023-08-22 11:00:00 69 mm[Hg] [facility] Systolic blood pressure 2023-07-14 21:14:00 174 mm[Hg] [facility] Diastolic blood pressure 2023-07-14 21:14:00 103 mm[Hg] [facility] Heart rate 2023-07-14 21:14:00 107 /min [facility] Body temperature 2023-07-14 21:14:00 37.72 Sophie [facility] Respiratory rate 2023-07-14 21:14:00 18 /min [facility] Body height 2023-07-14 21:14:00 172.7 cm [facility] Body weight 2023-07-14 21:14:00 117.935 kg [facility] BMI 2023-07-14 21:14:00 39.53 kg/m2 [facility] Oxygen saturation in Arterial blood by Pulse oximetry 2023-07-14 21:14:00 96 /min [facility] height 2023-05-01 11:00:00 69.00 [in_i] Com [facility] weight 2023-05-01 11:00:00 288.0 [lb_av] Co [facility] temperature 2023-05-01 11:00:00 97.9 [degF] Com [facility] bmi 2023-05-01 11:00:00 42.53 kg/m2 Comm on [facility] oximetry 2023-05-01 11:00:00 96 % Commo n [facility] respiratory rate 2023-05-01 11:00:00 17 /min Common [facility] blood pressure systolic 2023-05-01 11:00:00 148 mm[Hg] [facility] blood pressure diastolic 2023-05-01 11:00:00 74 mm[Hg] [facility] height 2023-02-21 09:00:00 69.00 [in_i] Com [facility] weight 2023-02-21 09:00:00 287.0 [lb_av] [facility] 2023-02-21 09:00:00 97.2 [degF] Com [facility] bmi 2023-02-21 09:00:00 42.38 kg/m2 Comm on [facility] oximetry 2023-02-21 09:00:00 98 % Commo n [facility] respiratory rate 2023-02-21 09:00:00 17 /min [facility] blood pressure systolic 2023-02-21 09:00:00 157 mm[Hg] [facility] blood pressure diastolic 2023-02-21 09:00:00 92 mm[Hg] [facility] height 2022-08-23 11:00:00 69.00 [in_i] Com [facility] weight 2022-08-23 11:00:00 288.8 [lb_av] Co [facility] temperature 2022-08-23 11:00:00 97.6 [degF] Com [facility] bmi 2022-08-23 11:00:00 42.64 kg/m2 Comm on [facility] oximetry 2022-08-23 11:00:00 95 % Commo n [facility] respiratory rate 2022-08-23 11:00:00 16 /min [facility] blood pressure systolic 2022-08-23 11:00:00 167 mm[Hg] [facility] blood pressure diastolic 2022-08-23 11:00:00 79 mm[Hg] [facility] height 2022-08-23 09:40:00 69.00 [in_i] Com [facility] weight 2022-08-23 09:40:00 288.8 [lb_av] Co [facility] temperature 2022-08-23 09:40:00 97.6 [degF] Com [facility] bmi 2022-08-23 09:40:00 42.64 kg/m2 Comm on [facility] oximetry 2022-08-23 09:40:00 95 % Commo n [facility] respiratory rate 2022-08-23 09:40:00 16 /min [facility] blood pressure systolic 2022-08-23 09:40:00 132 mm[Hg] [facility] blood pressure diastolic 2022-08-23 09:40:00 76 mm[Hg] [facility] Procedures Procedure Date / Time Performed Performing Clinicia n Source POCT SARS-COV-2 ANTIGEN (BINAX NOW) 2023-07-14 21:04:00 Wagner Hameed [facility] Encounters Start Date/Time End Date/Time Encounter Type Admission Type Attending Clinicians Care Facility Care Department Encounter ID Source 2024-04-28 15:01:00 [facility] [id number] [facility] 2023-04-29 08:25:00 [facility] [id number] [facility] 2023-03-29 11:53:00 Outpatient Douglas Orozco [facility] [id number] [facility] 2023-02-14 10:48:00 Outpatient Hugo Espinoza [facility] [id number] [facility] 2022-12-11 09:15:00 Outpatient ABDI, Na [facility]ML[facility] [id number] [facility] 2022-08-21 07:57:00 Outpatient Abdi, Na [facility] [id number] [facility] 2022-05-21 09:59:00 Outpatient Abdi, Na [facility]ML[facility] [id number] [facility] 2021-12-06 13:36:00 Outpatient Abdi, Na STLMLC [facility] [id number] [facility] 2021-12-06 13:28:02 Outpatient Abdi, Na [facility] [id number] [facility] 2021-12-06 13:15:43 Outpatient Abdi, Na STLMLC [facility] [id number] [facility] 2021-12-06 12:56:31 Outpatient Abdi, Na [facility]MLC [facility] [id number] [facility] 2021-12-06 12:34:00 Outpatient Abdi, Na [facility] [id number] [facility] 2021-12-06 12:25:49 Outpatient Abdi, Na [facility] [id number] [facility] 2021-12-06 12:02:31 Outpatient Abdi, Na [facility] [id number] [facility] 2021-12-06 12:00:50 Outpatient Abdi, Na STLMLC [facility] [id number] [facility] 2021-12-06 11:18:31 Outpatient Abdi, Na [facility]LMLC [facility] [id number] [facility] 2021-12-06 11:16:33 Outpatient Abdi, Na [facility]ML[facility] [id number] [facility] 2021-12-06 10:59:04 Outpatient Abdi, Na STLMLC [facility] [id number] [facility] 2024-10-01 00:00:00 2024-10-01 00:00:00 OFFICE VISIT ESTAB PT LEVEL 4 [facility]C STL[facility]C [id number] [facility] 2024-10-01 00:00:00 2024-10-01 00:00:00 SUB ANNUAL [facility] VISIT STLMLC STLMLC [id number] [facility] 2024-05-27 00:00:00 2024-05-27 00:00:00 OFFICE VISIT ESTAB PT LEVEL 4 [facility]C STL[facility]C [id number] [facility] 2024-04-24 00:00:00 2024-04-24 00:00:00 (TEL) STLMLC STLMLC [id number] [facility] 2024-03-31 00:00:00 2024-03-31 00:00:00 (TEL) STLMLC STL[facility]C [id number] [facility] 2023-12-26 00:00:00 2023-12-26 00:00:00 (TEL) STLMLC STLMLC [id number] [facility] 2023-12-24 00:00:00 2023-12-24 00:00:00 OFFICE VISIT ESTAB PT LEVEL 4 [facility]LMLC STL[facility]C [id number] [facility] 2023-11-18 00:00:00 2023-11-18 00:00:00 (TEL) STLMLC ST[facility]C [id number] [facility] 2023-11-18 00:00:00 2023-11-18 00:00:00 OFFICE VISIT ESTAB PT LEVEL 4 [facility] ST[facility] [id number] [facility] 2023-08-22 00:00:00 2023-08-22 00:00:00 OFFICE VISIT ESTAB PT LEVEL 4 [facility] [id number] [facility] 2023-08-22 00:00:00 2023-08-22 00:00:00 SUB ANNUAL [facility] VISIT STLMLC STLMLC [id number] [facility] 2023-08-22 00:00:00 2023-08-22 00:00:00 (TEL) STLMLC STLMLC [id number] [facility] 2023-07-14 16:00:00 2023-07-14 16:20:00 Urgent Care Wagner Hameed Unknown, Attending REPLACED BY [facility] [id number] [facility] 2023-07-14 16:00:00 2023-07-14 16:00:00 Outpatient R WAGNER HAMEED [facility] [id number] [facility] 2023-05-01 00:00:00 2023-05-01 00:00:00 (TEL) STLMLC STLMLC [id number] [facility] 2023-05-01 00:00:00 2023-05-01 00:00:00 OFFICE VISIT ESTAB PT LEVEL 4 [facility]LMLC STL[facility]C [id number] [facility] 2023-02-21 00:00:00 2023-02-21 00:00:00 OFFICE VISIT ESTAB PT LEVEL 4 [facility]C STL[facility]C [id number] [facility] 2023-02-07 00:00:00 2023-02-07 00:00:00 (TEL) STLMLC STLMLC [id number] [facility] 2022-11-27 00:00:00 2022-11-27 00:00:00 (TEL) STLMLC STLMLC [id number] [facility] 2022-08-23 00:00:00 2022-08-23 00:00:00 SUB ANNUAL [facility] VISIT STLML[facility] ST[facility]C [id number] [facility] 2022-08-23 00:00:00 2022-08-23 00:00:00 OFFICE VISIT EST PT LEVEL 3 STLMLC STL[facility]C [id number] [facility] 2022-05-30 00:00:00 2022-05-30 00:00:00 (TEL) STLMLC STLMLC [id number] [facility] 2022-05-23 00:00:00 2022-05-23 00:00:00 OL DIG E/M SVC 21+ MIN STLMLC STLMLC [id number] [facility] 2022-03-21 00:00:00 2022-03-21 00:00:00 (TEL) STLMLC STLMLC [id number] [facility] 2022-03-05 00:00:00 2022-03-05 00:00:00 (TEL) STLMLC STLMLC [id number] [facility] 2022-02-05 00:00:00 2022-02-05 00:00:00 (TEL) STLMLC STLMLC [id number] [facility] 2021-08-01 00:00:00 2021-08-01 00:00:00 (TEL) STLMLC STLMLC [id number] [facility] 2021-06-20 00:00:00 2021-06-20 00:00:00 OL DIG E/M SVC 11-20 MIN STLMLC STLMLC [id number] [facility] 2021-05-25 00:00:00 2021-05-25 00:00:00 Outpatient [facility]LMLC ST[facility] [id number] [facility] 2021-03-07 00:00:00 2021-03-07 00:00:00 Outpatient [facility] [id number] [facility] 2021-01-06 00:00:00 2021-01-06 00:00:00 Outpatient [facility]C [facility] [id number] [facility] 2020-12-07 00:00:00 2020-12-07 00:00:00 Outpatient [facility]LMLC [facility] [id number] [facility] 2020-10-06 00:00:00 2020-10-06 00:00:00 Outpatient [facility]LMLC ST[facility] [id number] [facility] 2020-09-20 00:00:00 2020-09-20 00:00:00 Outpatient [facility]LMLC [facility] [id number] [facility] 2020-09-15 00:00:00 2020-09-15 00:00:00 Outpatient STLMLC ST[facility]C [id number] [facility] 2020-09-09 00:00:00 2020-09-09 00:00:00 Outpatient STLMLC ST[facility]C [id number] [facility] 2020-08-19 02:58:00 2020-08-19 02:58:00 Outpatient GUU_SHENG_Y AW [facility] [id number] [facility] 2020-08-18 02:32:00 2020-08-18 02:32:00 Outpatient GUU_SHENG_Y AW [facility] [id number] [facility] 2020-05-02 03:04:00 2020-05-02 03:04:00 Outpatient GUU_SHENG_Y AW [facility] [id number] [facility] 2020-05-02 03:04:00 2020-05-02 03:04:00 Outpatient GUU_SHENG_Y AW [facility] [id number] [facility] 2020-03-04 11:00:00 2020-03-04 11:00:00 [facility] [id number] [facility] 2020-02-18 08:00:00 2020-02-18 08:00:[address] [facility] [id number] [facility] 2020-02-04 14:41:00 2020-02-04 14:41:[address] [facility] [id number] [facility] 2020-01-28 09:00:00 2020-01-28 09:00:00 [facility] [id number] [facility] 2020-01-15 10:45:00 2020-01-15 10:45:00 [facility] [id number] [facility] 2019-11-18 10:07:00 2019-11-18 10:07:[address] [facility] [id number] [facility] 2019-09-24 09:15:00 2019-09-24 09:15:[address] [facility] [facility] [id number] [facility] 2019-07-19 12:18:00 2019-07-19 12:18:[address] [facility] [id number] [facility] 2019-07-03 16:20:00 2019-07-03 16:20:[address] [facility] [id number] [facility] 2018-08-13 10:56:00 2018-08-13 10:56:[address] [facility] [facility] [id number] [facility] 2018-08-11 11:02:00 2018-08-11 11:02:[address] [facility] [id number] [facility] 2018-08-08 13:33:00 2018-08-08 13:33:[address] [facility] [facility] [id number] [facility] 2018-08-04 14:59:00 2018-08-04 14:59:00 Outpatient [facility] [id number] [facility] 2018-08-04 11:44:00 2018-08-04 11:44:00 [facility] [facility] [id number] [facility] 2018-07-28 15:15:00 2018-07-28 15:15:00 Outpatient [facility] [id number] [facility] Results Test Description Test Time Test Comments Results Result Co mments Source [id number] 00:00:00resultFREE T4 (THYROXINE)2023-08-22 00:00:00* Test Item Value Reference Range Interpretation Comme nts FREE T4 (THYROXINE) (test code = 3024-7) 1.22 NG/DL See_Comment [Automated messa ge] The system which generated this result transmitted reference range: 0.80-1.90 NG/DL. The reference range was not used to interpret this result as normal/abnormal. POCT SARS-COV-2 ANTIGEN (BINAX NOW)2023-07-14 21:19:00* Test Item Value Reference Range Interpretation Comme nts POCT SARS-COV-2 ANTIGEN (chadd t code = 04921-4) Positive Not Detected A On board controls acceptable with C Line (test code = 3574) No Lab Interpretation (test cod e = [id number]) Abnormal [facility]
[2024-10-31] MEDS ORDERED: NA CHLORIDE 0.9% 1,000 ML ONE (14:34)
--- NOTE | 2024-10-31 14:41 | RAD REPORT ---
EXAM: Chest Single View HISTORY: COUGH COMPARISON: 08/17/2011 FINDINGS: LUNGS/PLEURA: Left lung base is not well assessed. This may be due to underpenetration versus acute a irspace process. MEDIASTINUM: The mediastinal silhouette is within normal limits. CARDIAC: Cardiomegaly UPPER ABDOMEN: No significant abnormality. BONES: No acute fracture. Left shoulder arthroplasty. LINES/TUBES/OTHER: N/A IMPRESSION: Partial obscuration of left hemidiaphragm could be from underpenetration versus airspace disease with or without a small pleural effusion. A PA and lateral could better evaluate.
[2024-10-31 14:45] LABS: Absolute Eosinophils 0.2 K/uL (0-0.5); Absolute Lymphocytes (CBC) 0.7 K/uL (0.7-4.9); Absolute Monocytes 0.5 K/uL (0.1-1.3); Absolute Neutrophil 5.6 K/uL (1.8-8.0); Basophils % 0.6 % (0-1.3); Eosinophils % 2.6 % (0-4.4); Hematocrit 37.8 % (39.6-49.0); Hemoglobin 12.1 g/dL (13.6-17.9); Lymphocytes % 10.4 % (15.3-44.8); MCH 30.6 pg (27.0-35.0); MCV 95.8 fL (80-100); MPV 7.6 fL (7.6-11.3); Monocytes % 7.3 % (3.3-12.3); Neutrophils % 79.1 % (41.7-73.7); Platelets 253 thou/uL (152-406); RBC Red Blood Cell Count 3.94 M/uL (4.33-5.43); Red Cell Distribution Width 15.6 % (12.1-15.2)
[2024-10-31 14:47] LABS: Urine Bilirubin NEGATIVE (Negative); Urine Blood Negative (Negative); Urine Clarity Clear (Clear); Urine Color Colorless (Yellow); Urine Glucose NEGATIVE (Negative); Urine Ketones NEGATIVE (Negative); Urine Microscopic Reflex YN NO UMIC; Urine Nitrite NEGATIVE (Negative); Urine Protein NEGATIVE (Negative); Urine Urobilinogen Normal (Normal); Urine pH 7.5 (5.0-7.0)
[2024-10-31 14:52] LABS: PT Prothrombin Time 11.6 SECONDS (9.4-12.5); Protime INR 1.04
[2024-10-31 14:53] LABS: PTT, Activated Partial Thromb 32.2 SECONDS (24.3-36.9)
[2024-10-31 14:56] LABS: Barbiturates NEGATIVE (NEGATIVE); Benzodiazepines POSITIVE (NEGATIVE); Cocaine NEGATIVE (NEGATIVE); METHAMPHETAM NEGATIVE (NEGATIVE); Methadone NEGATIVE (NEGATIVE); Opiates POSITIVE (NEGATIVE); Phencyclidine NEGATIVE (NEGATIVE); THC Cannibis NEGATIVE (NEGATIVE)
[2024-10-31 15:07] LABS: ALT/SGPT 18 U/L (16-61); AST/SGOT 12 U/L (15-37); Albumin 3.5 g/dL (3.4-5.0); Albumin/Globulin Ratio 0.8 (1.1-1.8); Alkaline Phosphatase 129 U/L (45-117); Anion Gap 7.9 mEq/L (5.0-15.0); BUN Blood Urea Nitrogen 17 mg/dL (7-18); Bicarbonate 28 mEq/L (21-32); Bilirubin Direct 0.2 mg/dL (0-0.2); Bilirubin Indirect, Calculated 0.6 mg/dL (0.2-0.8); Bilirubin Total 0.8 mg/dL (0.2-1.0); Globulin 4.3 g/dL (2.3-3.5); Glomerular Filtration Rate 63 ml/min (=/>90); Glucose Level 149 mg/dL (74-106); Magnesium 2.1 mg/dL (1.6-2.4); NT PRO-BNP 148 pg/mL (<125); Potassium 3.9 mEq/L (3.5-5.1); Protein, Total 7.8 g/dL (6.4-8.2); Sodium Level 138 mEq/L (136-145); Troponin High Sensitivity 24.7 pg/mL (<58.9)
[2024-10-31] MEDS ORDERED: METOPROLOL TAR 50 MG TAB ONE (15:53)
[2024-10-31] MEDS ORDERED: ENALAPRIL 10 MG TAB ONE (15:53)
--- NOTE | 2024-10-31 17:04 | RAD REPORT ---
EXAMINATION: CT CHEST WITHOUT CONTRAST CLINICAL INDICATION: Male, 74 years old. COUGH TECHNIQUE: Routine CT scan of the chest without intravenous contrast. One or more of the following do se reduction techniques were used: Automated exposure control, adjustment of the mA and/or kV according to patient size, and/or iterative reconstruction. Unless otherwise specified, incidental fi ndings do not require dedicated imaging follow-up. [id number]. COMPARISON: 11/14/2010 FINDINGS: LOWER NECK: Visualized thyroid gland and soft tissues are normal. LUNGS AND AIRWAYS: Airways are clear. No evidence of airspace or interstitial process. No nodules. PLEURA: No pleural effusion. No pneumothorax. Hemidiaphragms are normally positioned. MEDIASTINUM AND LYMPH NODES: No mediastinal mass or fluid collection. Normal size mediastinal, hilar, and axillary lymph nodes. Small hiatal hernia. THORACIC AORTA: Normal caliber and configuration. Duplicated SVC. PULMONARY ARTERIES: Normal caliber. HEART: Mild cardiomegaly. Coronary arterial calcifications are present.No pericardial effusion. OSSEOUS STRUCTURES AND CHEST WALL: Intact. Left shoulder is opacity. UPPER ABDOMEN: Nodular liver contour. IMPRESSION: No acute or significant abnormalities.
--- NOTE | 2024-10-31 17:08 | RAD REPORT ---
EXAMINATION: CT HEAD WITHOUT CONTRAST CLINICAL INDICATION: Male, 74 years old.AMS TECHNIQUE: Axial CT images from the skull base to the vertex without intravenous contrast. Coronal an d sagittal reformatted images were created from the data set. One or more of the following dose reduction techniques were used: Automated exposure control, adjustment of the mA and/or kV according to patient size, and/or iterative reconstruction. Unless otherwise specified, incidental findings do not require dedicated imaging follow-up. [id number]. COMPARISON: 11/14/2010 FINDINGS: INTRACRANIAL: No acute intracranial hemorrhage. No hydrocephalus. No mass effect or midline shift. Mi ld chronic small vessel ischemic changes.Mild cerebral atrophy. VASCULATURE: No visualized abnormalities in the arteries or dural venous sinuses. SCALP/SKULL: No significant soft tissue or osseous abnormalities. SINUSES: The visualized paranasal sinuses and mastoid air cells are predominantly clear. IMPRESSION: No acute intracranial abnormality.
--- NOTE | 2024-10-31 17:11 | ER ---
Nurse's Notes [facility] Name: Gerardo Eason Age: 74 yrs Sex: Male : 1950 Arrival Date: 10/31/2024 Time: 13:51 Bed 18 Private MD: Diagnosis: Anxiety disorder, unspecified;Weakness;Obesity, unspecified;Adverse effect of other drugs, medicaments and biological substances Presentation: 10/31 13:53 Chief complaint: EMS states: toned out for difficulty breathing and anxiety. States he me1 took half a norco 7.5mg at about 8 am and then started feeling sob and anxious about 12:30 so he took 4 mg of Narcan IN and called EMS. Feeling better now. Coronavirus screen: Vaccine status: Patient reports receiving the 2nd dose of the covid vaccine. Ebola Screen: No symptoms or risks identified at this time. Initial Sepsis Screen: Does the patient meet any 2 criteria? No. Patient's initial sepsis screen is negative. Does the patient have a suspected source of infection? No. Patient's initial sepsis screen is negative. Risk Assessment: Do you want to hurt yourself or someone else? Patient reports no desire to harm self or others. Onset of symptoms was October 31, 2024 at 12:30. 13:53 Method Of Arrival: EMS: [place] [id number] 13:53 Acuity: CHANDRIKA 3 me1 Triage Assessment: 13:53 Cardiovascular: Patient's skin is warm and dry. Respiratory: Airway is patent me1 Respiratory effort is even, unlabored, Respiratory pattern is regular, symmetrical. GI: No signs and/or symptoms were reported involving the gastrointestinal system. : No signs and/or symptoms were reported regarding the genitourinary system. Derm: Skin is intact, is healthy with good turgor, Skin is pink, warm \T\ dry. Musculoskeletal: No signs and/or symptoms reported regarding the musculoskeletal system. 14:00 General: Appears comfortable, well groomed, well developed, well nourished, Behavior is me1 calm, cooperative, appropriate for age, Reports. Pain: Denies pain. EENT: No signs and/or symptoms were reported regarding the EENT system. Neuro: Level of Consciousness is awake, alert, obeys commands, Oriented to person, place, time, situation, Appropriate for age. Historical: - Allergies: 14:00 No Known Allergies; me1 - PMHx: 14:00 Chronic pain; Myocardial infarction; Hypothyroidism; Diabetes mellitus; me1 - Immunization history:: Adult Immunizations up to date. - Infectious Disease History:: Denies. - Social history:: Smoking status: Patient denies any tobacco usage or history of. - Family history:: not pertinent. Screenin:03 [facility] ED Fall Risk Assessment (Adult) History of falling in the last 3 months, me1 including since admission No falls in past 3 months (0 pts) Confusion or Disorientation No (0 pts) Intoxicated or Sedated No (0 pts) Impaired Gait No (0 pts) Mobility Assist Device Used No (0 pt) Altered Elimination No (0 pt) Score/Fall Risk Level 0 - 2 = Low Risk Maintained a safe environment, Provided non-skid footwear, Hourly rounding (assess needs \T\ fall precautionary measures) done. Abuse screen: Denies threats or abuse. Nutritional screening: No deficits noted. Tuberculosis screening: No symptoms or risk factors identified. Assessment: 14:03 General: See triage assessment. me1 Vital Signs: 13:53 BP 216 / 99; Pulse 76; Resp 18; Temp 98.4; Pulse Ox 99% ; Weight 126.1 kg; Height 5 ft. me1 8 in. ; Pain 0/10; 14:30 BP 206 / 102; Pulse 78; Resp 19; Pulse Ox 97% ; me1 15:30 BP 178 / 106; Pulse 81; Resp 15; Pulse Ox 99% ; me1 16:30 BP 167 / 94; Pulse 80; Resp 17; Pulse Ox 99% ; me1 17:30 BP 165 / ???; Pulse 76; Resp 17; Temp 98.4; Pulse Ox 99% ; me1 13:53 Body Mass Index 42.27 (126.10 kg, 172.72 cm) me1 13:53 Pain Scale: Adult me1 ED Course: 13:53 Patient arrived in ED. me1 13:53 Arm band placed on Patient placed in an exam room. me1 14:00 Triage completed. me1 14:03 Patient has correct armband on for positive identification. Bed in low position. Call [facility] light in reach. Side rails up X2. Provided Education on: POC. Verbalized understanding.. Client placed on continuous cardiac and pulse oximetry monitoring. NIBP monitoring applied. masonry installer on. Pulse ox on. NIBP on. 14:03 No provider procedures requiring assistance completed. me1 14:07 Josephine Galloway, ILLLY is Primary Nurse. me1 14:07 EKG done, by ED staff. me1 14:11 Nate Murillo MD is Attending Physician. fay 14:28 XRAY Chest (1 view) In Process Unspecified. EDMS 14:35 Initial lab(s) drawn, by pa, sent to lab. Urine collected: clean catch specimen, clear. me1 Inserted saline lock: 22 gauge in right antecubital area, using aseptic technique. 14:36 Acetaminophen Sent. me1 14:36 ETOH Level Sent. me1 14:36 Ptt, Activated Sent. me1 14:36 Salicylate Sent. me1 14:36 Urinalysis w/ reflexes Sent. me1 14:36 Urine Drug Screen Sent. me1 14:36 Basic Metabolic Panel Sent. me1 14:36 CBC with Diff Sent. me1 14:36 LFT's Sent. me1 14:36 Magnesium Sent. me1 14:36 NT PRO-BNP Sent. me1 14:36 PT-INR Sent. me1 14:36 Troponin HS Sent. me1 16:59 CT Chest Wo Con In Process Unspecified. EDMS 16:59 CT Head Brain wo Cont In Process Unspecified. EDMS 18:14 IV discontinued, intact, bleeding controlled, No redness/swelling at site. Pressure me1 dressing applied. Administered Medications: 14:40 Drug: NS 0.9% IV 1000 ml IV at 1000 ml once; to be given as a bolus over 60 minutes me1 Route: IV; Rate: 1000 ml; Site: right antecubital; 17:45 Follow up: Response: No adverse reaction; IV Status: Completed infusion; IV Intake: me1 1000ml 15:55 Drug: Metoprolol PO 50 mg PO once Route: PO; me1 17:45 Follow up: Response: No adverse reaction; Blood pressure is lowered me1 15:56 Drug: Enalapril PO 10 mg PO once Route: PO; me1 17:45 Follow up: Response: No adverse reaction; Blood pressure is lowered me1 Medication: 14:03 VIS not applicable for this client. me1 Intake: 17:45 IV: 1000ml; Total: 1000ml. me1 Outcome: 17:11 Discharge ordered by MD. aponte 18:14 Discharged to home via wheelchair, with family, me1 18:14 Condition: stable 18:14 Discharge instructions given to patient, family, Instructed on discharge instructions, follow up and referral plans. Demonstrated understanding of instructions, follow-up care, 18:16 Patient left the ED. pa1 Signatures: Dispatcher [employer] Nate Mcdonough MD MD cha Eddleman, Michelle, LILLY RN me1 Corrections: (The following items were deleted from the chart) 14:01 14:00 PMHx: Myocardial infarction; me1 me1 14:02 13:53 Pulse 76bpm; Resp 18bpm; Pulse Ox 99%; Temp 98.4F; 126.1 kg; Height 5 ft. 8 in.; pa1 BMI: 42.2; Pain 0/10, Adult; pa1 14:02 14:00 Neuro: Level of Consciousness is awake, alert, obeys commands, pa1 [facility]
--- NOTE | 2024-10-31 17:11 | EDPHYS ---
Physician Documentation [facility] Name: Gerardo Eason Age: 74 yrs Sex: Male : 1950 Arrival Date: 10/31/2024 Time: 13:51 Bed 18 Private MD: ED Physician Nate Murillo HPI: 10/31 16:17 This 74 yrs old Black Male presents to ER via EMS with complaints of Anxiety, General fay Weakness. 16:17 TOOK NORCO, THE NARCAN. The patient presents with trouble concentrating. Onset: The fay symptoms/episode began/occurred just prior to arrival. Possible causes: CVA or TIA, drug use, alcohol, head injury, low blood sugar, seizure, sepsis. Associated signs and symptoms: The patient has no apparent associated signs or symptoms. Current symptoms: In the emergency department the patient's symptoms have improved, markedly, is more alert. Patient's baseline: Neuro: alert and fully oriented. The patient has experienced similar episodes in the past, a few times. Historical: - Allergies: 14:00 No Known Allergies; me1 - PMHx: 14:00 Chronic pain; Myocardial infarction; Hypothyroidism; Diabetes mellitus; me1 - Immunization history:: Adult Immunizations up to date. - Infectious Disease History:: Denies. - Social history:: Smoking status: Patient denies any tobacco usage or history of. - Family history:: not pertinent. ROS: 16:17 Constitutional: Negative for fever, chills, and weight loss, Eyes: Negative for injury, fay pain, redness, and discharge, ENT: Negative for injury, pain, and discharge, Neck: Negative for injury, pain, and swelling, Cardiovascular: Negative for chest pain, palpitations, and edema, Respiratory: Negative for shortness of breath, cough, wheezing, and pleuritic chest pain, Abdomen/GI: Negative for abdominal pain, nausea, vomiting, diarrhea, and constipation, Back: Negative for injury and pain, : Negative for injury, bleeding, discharge, and swelling, MS/Extremity: Negative for injury and deformity, Skin: Negative for injury, rash, and discoloration, Neuro: Negative for headache, weakness, numbness, tingling, and seizure, Psych: Negative for depression, anxiety, suicide ideation, homicidal ideation, and hallucinations, Allergy/Immunology: Negative for hives, rash, and allergies, Endocrine: Negative for neck swelling, polydipsia, polyuria, polyphagia, and marked weight changes, Hematologic/Lymphatic: Negative for swollen nodes, abnormal bleeding, and unusual bruising, Exam: 16:17 Constitutional: This is a well developed, well nourished patient who is awake, alert, fay and in no acute distress. Head/Face: Normocephalic, atraumatic. Eyes: Pupils equal round and reactive to light, extra-ocular motions intact. Lids and lashes normal. Conjunctiva and sclera are non-icteric and not injected. Cornea within normal limits. Periorbital areas with no swelling, redness, or edema. ENT: Nares patent. No nasal discharge, no septal abnormalities noted. Tympanic membranes are normal and external auditory canals are clear. Oropharynx with no redness, swelling, or masses, exudates, or evidence of obstruction, uvula midline. Mucous membranes moist. Neck: Trachea midline, no thyromegaly or masses palpated, and no cervical lymphadenopathy. Supple, full range of motion without nuchal rigidity, or vertebral point tenderness. No Meningismus. Chest/axilla: Normal chest wall appearance and motion. Nontender with no deformity. No lesions are appreciated. Cardiovascular: Regular rate and rhythm with a normal S1 and S2. No gallops, murmurs, or rubs. Normal PMI, no JVD. No pulse deficits. Respiratory: Lungs have equal breath sounds bilaterally, clear to auscultation and percussion. No rales, rhonchi or wheezes noted. No increased work of breathing, no retractions or nasal flaring. Abdomen/GI: Soft, non-tender, with normal bowel sounds. No distension or tympany. No guarding or rebound. No evidence of tenderness throughout. Back: No spinal tenderness. No costovertebral tenderness. Full range of motion. Male : Normal genitalia with no discharge or lesions. Skin: Warm, dry with normal turgor. Normal color with no rashes, no lesions, and no evidence of cellulitis. MS/ Extremity: Pulses equal, no cyanosis. Neurovascular intact. Full, normal range of motion., bilateral aka Neuro: Awake and alert, GCS 15, oriented to person, place, time, and situation. Cranial nerves II-XII grossly intact. Motor strength 5/5 in all extremities. Sensory grossly intact. Cerebellar exam normal. Normal gait. Psych: Awake, alert, with orientation to person, place and time. Behavior, mood, and affect are within normal limits. 16:17 ECG was reviewed by the Attending Physician. Vital Signs: 13:53 BP 216 / 99; Pulse 76; Resp 18; Temp 98.4; Pulse Ox 99% ; Weight 126.1 kg; Height 5 ft. me1 8 in. ; Pain 0/10; 14:30 BP 206 / 102; Pulse 78; Resp 19; Pulse Ox 97% ; me1 15:30 BP 178 / 106; Pulse 81; Resp 15; Pulse Ox 99% ; me1 16:30 BP 167 / 94; Pulse 80; Resp 17; Pulse Ox 99% ; me1 17:30 BP 165 / ???; Pulse 76; Resp 17; Temp 98.4; Pulse Ox 99% ; me1 13:53 Body Mass Index 42.27 (126.10 kg, 172.72 cm) me1 13:53 Pain Scale: Adult me1 MDM: 14:11 Medical Screening Exam initiated fay 16:19 Differential Diagnosis altered mental status, sepsis, flu. Differential Diagnosis: CVA, fay electrolyte abnormality, alcohol intoxication, hypoglycemia, intracranial bleed, pneumonia, volume depletion. Data reviewed: vital signs, nurses notes, EMS record, lab test result(s), EKG, radiologic studies, CT scan, plain films. Consideration of Admission/Observation Escalation of care including admission/observation considered. I considered the following discharge prescriptions or medication management in the emergency department Medications were administered in the Emergency Department. See MAR. Independent interpretation of the following test(s) in the Emergency Department EKG: See my EKG interpretation above. Test considered but Not performed: MRI: NO MRI BRAIN. Historians other than the Patient: Daughter/Son: SON WELL INFORMED. Care significantly affected by the following chronic conditions: Diabetes, Hypertension, Obesity. 10/31 14:11 Order name: Basic Metabolic Panel; Complete Time: 16: [facility] 10/31 14:11 Order name: CBC with Diff; Complete Time: 16:08 [facility] 10/31 14:11 Order name: LFT's; Complete Time: 16:08 [facility] 10/31 14:11 Order name: Magnesium; Complete Time: 16: [facility] 10/31 14:11 Order name: NT PRO-BNP; Complete Time: 16:08 [facility] 10/31 14:11 Order name: PT-INR; Complete Time: 16:08 [facility] 10/31 14:11 Order name: Troponin HS; Complete Time: 16:08 [facility] 10/31 14:11 Order name: Acetaminophen; Complete Time: 16:08 [facility] 10/31 14:11 Order name: ETOH Level; Complete Time: 16:08 [facility] 10/31 14:11 Order name: Ptt, Activated; Complete Time: 16:08 [facility] 10/31 14:11 Order name: Salicylate; Complete Time: 16:08 [facility] 10/31 14:11 Order name: Urinalysis w/ reflexes; Complete Time: 16:08 [facility] 10/31 14:11 Order name: Urine Drug Screen; Complete Time: 16:08 [facility] 10/31 14:11 Order name: XRAY Chest (1 view); Complete Time: 16:08 [facility] 10/31 16:17 Order name: CT Chest Wo Con 10/31 16:19 Order name: CT Head Brain wo Cont [facility] 10/31 14:11 Order name: EKG; Complete Time: 14:12 [facility] 10/31 14:11 Order name: Cardiac monitoring; Complete Time: 14:36 [facility] 10/31 14:11 Order name: EKG - Nurse/Tech; Complete Time: 14:36 [facility] 10/31 14:11 Order name: IV Saline Lock; Complete Time: 14:36 [facility] 10/31 14:11 Order name: Labs collected and sent; Complete Time: 14:36 [facility] 10/31 14:11 Order name: O2 Per Protocol; Complete Time: 14:36 [facility] 10/31 14:11 Order name: O2 Sat Monitoring; Complete Time: 14:36 [facility] 10/31 14:11 Order name: Suicide Screening ([place]); Complete Time: 14:36 [facility] EC:17 Rate is 76 beats/min. Rhythm is regular. QRS [place]ax is Normal. WI interval is normal. QRS fay interval is normal. QT interval is normal. No Q waves. T waves are Normal. No ST changes noted. Clinical impression: Normal ECG and No evidence of ischemia. Interpreted by me. Reviewed by me. Administered Medications: 14:40 Drug: NS 0.9% IV 1000 ml IV at 1000 ml once; to be given as a bolus over 60 minutes me1 Route: IV; Rate: 1000 ml; Site: right antecubital; 17:45 Follow up: Response: No adverse reaction; IV Status: Completed infusion; IV Intake: me1 1000ml 15:55 Drug: Metoprolol PO 50 mg PO once Route: PO; me1 17:45 Follow up: Response: No adverse reaction; Blood pressure is lowered me1 15:56 Drug: Enalapril PO 10 mg PO once Route: PO; me1 17:45 Follow up: Response: No adverse reaction; Blood pressure is lowered me1 Disposition Summary: 10/31/24 17:11 Discharge Ordered Notes: Location: Home fay Problem: new fay Symptoms: have improved fay Condition: Stable fay Diagnosis - Anxiety disorder, unspecified fay - Weakness fay - Obesity, unspecified fay - Adverse effect of other drugs, medicaments and biological substances fay Followup: fay - With: Private Physician - When: 2 - 3 days - Reason: Recheck today's complaints, Continuance of care, Re-evaluation by your physician Discharge Instructions: - Discharge Summary Sheet fay - Obesity, Adult fay - Weakness fay - Weakness, [id number] fay - Obesity, Adult, Swav-jl-[id number] fay - Deconditioning fay Forms: - Medication Reconciliation Form fay - Antibiotic Education fay - Prescription Opioid Use fay - Patient Portal Instructions fay - Leadership Thank You Letter fay Signatures: Dispatcher [employer] EDNate Avilez MD MD cha Eddleman, Michelle, RN RN me1 Corrections: (The following items were deleted from the chart) 14:01 14:00 PMHx: Myocardial infarction; me1 me1 14:12 14:12 BASIC METABOLIC PANEL+C.LAB.BRZ ordered. EDMS EDMS 14:12 14:12 CBC+H.LAB.BRZ ordered. EDMS EDMS 14:12 14:12 HEPATIC FUNCTION+C.LAB.BRZ ordered. EDMS EDMS 14:12 14:12 MAGNESIUM+C.LAB.BRZ ordered. EDMS EDMS 14:12 14:12 PROBNP+C.LAB.BRZ ordered. EDMS EDMS 14:12 14:12 PROTIME (+INR)+COAG.LAB.BRZ ordered. EDMS EDMS 14:12 14:12 Troponin High Sensitivity+C.LAB.BRZ ordered. EDMS EDMS 14:12 14:12 ACETAMINOPHEN+C.LAB.BRZ ordered. EDMS EDMS 14:12 14:12 ETHANOL+C.LAB.BRZ ordered. EDMS EDMS 14:12 14:12 PTT, ACTIVATED+COAG.LAB.BRZ ordered. EDMS EDMS 14:12 14:12 SALICYLATE+C.LAB.BRZ ordered. EDMS EDMS 14:12 14:12 Urinalysis+U.LAB.BRZ ordered. EDMS EDMS 14:12 14:12 URINE DRUG SCREEN+UC.LAB.BRZ ordered. EDMS EDMS 16:20 16:20 Head Brain Wo Cont+CT.RAD.BRZ ordered. EDMS EDMS
[2024-10-31 18:47] VITALS: TEMP 98.4
[2024-10-31 18:58] VITALS: O2SAT 99
[2024-10-31 18:59] VITALS: BP 167/94
--- NOTE | 2024-11-01 13:05 | EKG ---
Test Date: 2024-10-31 Test Time: 14:05:23 Audio Visual Project Manager: MEASUREMENT RESULTS: Intervals: Rate: 76 PA: 200 QRSD: 88 QT: 394 QTc: 443 [place]: P: 34 PA: 200 QRS: 63 T: 63 INTERPRETIVE STATEMENTS: Normal sinus rhythm Normal ECG Compared to ECG 08/17/2011 11:00:59 T-wave abnormality no longer present Electronically Signed On 11-01-24 13:03:59 TAPE RULES PRINTING MACHINE OPERATOR by Robbie Tadeo
== END 2024-10-31 18:16 | disposition home or self-care (01) ==
LOC: ER 13:51
DX: F41.9 Anxiety disorder, unspecified (principal); R53.1 Weakness; T50.995A Adverse effect of other drugs, medicaments and biological substances, initial encounter; E66.9 Obesity, unspecified; E11.9 Type 2 diabetes mellitus without complications; G89.29 Other chronic pain
CPT/HCPCS: 96361; 93005; 85025; 80048; 36415; 83735; 85610; 80076; 85730; 81003; 84484; 83880; 80307; 70450; 71250; 71045; 96360; 99285; 80143; 80179; 82077; J7030